=== PATIENT | female | born 1945 | race Caucasian/White ===

== ENCOUNTER → 2016-05-20 | Outpatient (CLI) | payer MEDICARE | LOC: MAMO 05-06 08:00 | DX: Z12.31 Encounter for screening mammogram for malignant neoplasm of breast (principal) | CPT/HCPCS: G0202 ==

== ENCOUNTER → 2020-07-17 | Outpatient (CLI) | payer MEDICARE ==
[~2020-07-17] MED LIST: ACCUPRIL20 MG PO; COLACE 100MG C100 MG PO; CONTRAVE PO; FOLIC ACID 1 MG1 MG PO; IMURAN TAB 50 M50 MG PO; LASIX40 MG PO; NORCO 5-325 TA1 EACH PO; PLAQUENIL 200200 MG PO; PROTONIX40 MG PO; VITAMIN D2000 UNI1 PO
== END ==
LOC: ECHO 12:00
DX: R01.1 Cardiac murmur, unspecified (principal); I08.3 Combined rheumatic disorders of mitral, aortic and tricuspid valves; I27.20 Pulmonary hypertension, unspecified; I31.3 Pericardial effusion (noninflammatory)
CPT/HCPCS: ECHO; 93306

== ENCOUNTER → 2020-08-03 | Outpatient (CLI) | payer MEDICARE | LOC: MAMO 06-27 10:30 | DX: Z12.31 Encounter for screening mammogram for malignant neoplasm of breast (principal) | CPT/HCPCS: 77063; 77067 ==

== ENCOUNTER → 2020-12-05 | Outpatient (CLI) | payer MEDICARE | LOC: KOH-I 12:46 | DX: M25.551 Pain in right hip (principal); M25.552 Pain in left hip; M54.50 Low back pain, unspecified; M47.814 Spondylosis without myelopathy or radiculopathy, thoracic region | CPT/HCPCS: 72070; 73522 ==

== ENCOUNTER → 2020-12-06 | Outpatient (CLI) | payer MEDICARE | LOC: KOH-I 11:15 | DX: S39.012A Strain of muscle, fascia and tendon of lower back, initial encounter (principal); M51.16 Intervertebral disc disorders with radiculopathy, lumbar region; M43.16 Spondylolisthesis, lumbar region; G95.89 Other specified diseases of spinal cord | CPT/HCPCS: 72100 ==

== ENCOUNTER → 2020-12-14 | Outpatient (CLI) | payer MEDICARE | LOC: KOH-I 10:17 | DX: M51.16 Intervertebral disc disorders with radiculopathy, lumbar region (principal); R20.0 Anesthesia of skin; R20.2 Paresthesia of skin; M48.07 Spinal stenosis, lumbosacral region; M47.26 Other spondylosis with radiculopathy, lumbar region | CPT/HCPCS: 72148 ==

== ENCOUNTER → 2021-04-26 | Outpatient (CLI) | payer MEDICARE | LOC: KOH-I 09:00 | DX: M51.36 Other intervertebral disc degeneration, lumbar region (principal); M54.50 Low back pain, unspecified; Q76.2 Congenital spondylolisthesis | CPT/HCPCS: 72131 ==